=== PATIENT | male | born 1965 | race Caucasian/White ===

== ENCOUNTER → 2017-03-14 | Outpatient (CLI) | payer BC ==
[~2017-03-14] MED LIST: CLC100 PO; CYAN100020 PO
--- NOTE | 2017-03-14 09:43 | DIAGNOSTIC IMAGING REPORT ---
PA CHEST INCLUDING OBLIQUES 3 VIEWS CLINICAL HISTORY: N40.0 Benign prostatic hypertrophy without urinary obstruction renal cell carcinoma. COMPARISON STUDY: 09/17/2016 FINDINGS: The cardiac and mediastinal contours are normal. No suspicious pulmonary masses are visualized. There is no focal pulmonary consolidation. There are no pleural effusions. No destructive skeletal lesions are visualized. IMPRESSION: No active disease in the chest. Electronically signed by: Colten Stafford M.D. 03/14/2017 9:40 AM Dictated Date/Time: 03/14/2017 9:38 AM
[2017-03-14 10:38] LABS: ALT/SGPT 22 U/L (12-78); BLOOD UREA NITROGEN 13 mg/dl (7-18); BUN/CREATININE RATIO 11.6 (10-20); CARBON DIOXIDE 29 mmol/L (21-32); CHLORIDE 106 mmol/L (98-107); GLUCOSE 91 mg/dl (70-99); POTASSIUM 3.9 mmol/L (3.5-5.1); SODIUM 141 mmol/L (136-145)
[2017-03-14 10:42] LABS: ALB/GLOB RATIO 1.1 (0.9-2); ALKALINE PHOSPHATASE 68 U/L (45-117); AST/SGOT 17 U/L (15-37)
[2017-03-14 12:13] LABS: CALCIUM 8.5 mg/dl (8.5-10.1)
== END | disposition home or self-care (01) ==
LOC: C.LAB 09:16
PROVIDERS: ATTEND Urology
DX: N40.0 Benign prostatic hyperplasia without lower urinary tract symptoms (principal)